=== PATIENT | female | born 1965 | race American Indian/Alaskan Native ===

== ENCOUNTER 2017-10-04 12:18 | Emergency (ER) | payer SELFPAY ==
[2017-10-04 13:16] VITALS: BP 134/101
--- NOTE | 2017-10-04 22:14 | Emergency Department Report ---
Minor Respiratory - HPI Chief Complaint: Upper Respiratory Infection Stated Complaint: C/P BODY ACHES FLU SYMPTOMS Time Seen by Provider: 10/04/17 19:50 Duration: 3 Days Severity: moderate Minor Respiratory: Yes Rhinorrhea, Yes Able to Tolerate Fluids, Yes Cough, Yes Sick Contacts, Yes Shortness of Breath, No Sore Throat, No Ear Pain, No Hemoptysis, No Chest Pain, No Fever Other History: This is a 52 y.o. female, presents with sinus pressure, SOB with exertion, cough, and congestion for 3 days. She is taking robitussin and nyquil for symptoms. History of HTN and current smoker. Reports smoking 3-5 cigarettes daily. Denies chest pain, wheezing, abdominal pain, fever, and N/V. ED Review of Systems ROS: Stated complaint: C/P BODY ACHES FLU SYMPTOMS Other details as noted in HPI Constitutional: see HPI ENT: congestion. denies: ear pain, throat pain Respiratory: see HPI, cough, SOB with exertion. denies: stridor, wheezing Cardiovascular: denies: chest pain, palpitations Gastrointestinal: denies: abdominal pain, nausea, vomiting, diarrhea Neurological: denies: headache, weakness, paresthesias ED Past Medical Hx - Past Medical History Previous Medical History?: Yes Hx Hypertension: Yes Additional medical history: Back pain with JEFF injections - Surgical History Past Surgical History?: Yes Additional Surgical History: Left knee surgery, Right hand Carpel tunnel surgery - Social History Smoking Status: Current Every Day Smoker - Medications Home Medications: Home Medications Medication Instructions Recorded Confirmed Last Taken Type Benzonatate 200 mg PO TID PRN #30 capsule 10/04/17 Unknown Rx Fluticasone [Flonase] 1 spray NS QDAY #1 bottle 10/04/17 Unknown Rx Minor Respiratory Exam - Exam General: Vital signs noted. No distress. Alert and acting appropriately. HEENT: Yes Pharyngeal Erythema, Yes Moist Mucous Membranes, Yes Rhinorrhea, No Pharyngeal Exudates, No Conjuctival Injection, No Frontal Tenderness, No Maxillary Tenderness Ear: Neither TM Bulge, Neither TM Erythema, Neither EAC Pain, Neither EAC Discharge Neck: Yes Supple, No Adenopathy Lungs: Yes Good Air Exchange, Yes Wheezes (throughout), Yes Cough, No Ronchi, No Stridor, No Labored Respirations, No Retractions, No Use of Accessory Muscles , No Other Abnormal Lung Sounds Heart: Yes Regular, No Murmur Abdomen: Yes Normal Bowel Sounds, No Tenderness, No Peritoneal Signs Skin: No Rash, No Edema Neurologic: Alert and oriented, no deficits. Musculoskeletal: Unremarkable. ED Course Vital Signs 10/04/17 13:12 Temperature 98.5 F Pulse Rate 76 Respiratory 20 Rate Blood Pressure 134/101 O2 Sat by Pulse 94 Oximetry ED Medical Decision Making - Radiology Data Radiology results: image reviewed CXR FINDINGS: Heart: Normal. Mediastinum/Vessels: Normal. Lungs/Pleural space: No infiltrate, effusion, or pneumothorax. Bony thorax: No acute osseous abnormality. Other: IMPRESSION: No pulmonary infiltrates are identified. - Medical Decision Making This is a 52 y.o. female presents with cough, congestion, and SOB with exertion for 3 days. She is taking robitussin and nyquil for symptoms with minimal improvement. Denies chest pain, N/V, ear pain, sore throat, and wheezing. CXR IMPRESSION: No pulmonary infiltrates are identified. Common Cold Discharged home with supportive care. Critical care attestation.: If time is entered above; I have spent that time in minutes in the direct care of this critically ill patient, excluding procedure time. ED Disposition Clinical Impression: Nasopharyngitis acute Disposition: DC-01 TO HOME OR SELFCARE Is pt being admited?: No Does the pt Need Aspirin: No Condition: Stable Instructions: Cold Symptoms (ED), Upper Respiratory Infection (ED) Additional Instructions: Increase fluid intake and rest. Wash hands frequently. Take tylenol for fever. Follow up with Primary Care Provider in 48-72 hours if symptoms are worse. Prescriptions: Benzonatate 200 mg PO TID PRN #30 capsule PRN Reason: Cough Fluticasone [Flonase] 1 spray NS QDAY #1 bottle Referrals: [facility] [Outside] - 3-5 Days [facility] [Outside] - 3-5 Days Forms: Work/School Release Form(ED) Time of Disposition: 22:52 Print Language: CITIZEN OF [place]
--- NOTE | 2017-10-04 22:44 | XRay Report ---
FINAL REPORT PROCEDURE: XR CHEST ROUTINE 2V TECHNIQUE: PA and lateral chest radiographs were obtained. CPT 40194 HISTORY: cough COMPARISON: No prior studies are available for comparison. FINDINGS: Heart: Normal. Mediastinum/Vessels: Normal. Lungs/Pleural space: No infiltrate, effusion, or pneumothorax. Bony thorax: No acute osseous abnormality. Other: IMPRESSION: No pulmonary infiltrates are identified.
== END 2017-10-04 23:01 | disposition home or self-care (01) ==
LOC: ED 12:18
DX: J00 Acute nasopharyngitis [common cold] (principal); I10 Essential (primary) hypertension; F17.200 Nicotine dependence, unspecified, uncomplicated; Z98.890 Other specified postprocedural states
CPT/HCPCS: 71046